=== PATIENT | male | born 1970 | race Caucasian/White ===

== ENCOUNTER 2021-12-18 00:46 | Emergency (ER) | payer SELFPAY ==
[~2021-12-18] VITALS: Ht 165.1 cm; Wt 61.2 kg
[2021-12-18 01:03] VITALS: BP_SYST 123
--- NOTE | 2021-12-18 01:03 | NUR ---
Patient came in to the emergency department accompanied by family complains of headache, body aches and reports shortness of breath started today. Patient claims taking Advil for his pain. Patient with history of asthma but reports he has no asthma attack for 4 years. Patient claims he tested negative for covid 19 this morning. Patient breathing easy, respirations even and unlabored, lungs clear to auscultate. Patient afebrile, O2 sat 98% on RA, denies N/V/D. Patient AAO x 4, ambulatory with steady gait.
--- NOTE | 2021-12-18 01:04 | NUR ---
YULI Riley in tent examining patient.
--- NOTE | 2021-12-18 01:45 | NUR ---
Patient given written and verbal discharge instructions and verbalizes understanding. ER MD discussed with patient the results and treatment provided. Patient in stable condition. ID arm band removed. IV catheter removed intact and dressing applied, no active bleeding. Rx of N/A given. Patient educated on pain management and to follow up with PMD. Pain Scale . Opportunity for questions provided and answered. Medication side effect fact sheet provided.
== END 2021-12-18 01:44 | disposition home or self-care (01) ==
LOC: SED 00:46
DX: B34.9 Viral infection, unspecified (principal); J45.909 Unspecified asthma, uncomplicated; R05.9 Cough, unspecified; R51.9 Headache, unspecified; Z79.899 Other long term (current) drug therapy; Z20.822 Contact with and (suspected) exposure to COVID-19
CPT/HCPCS: 36415; 71045; 99284

== ENCOUNTER 2022-10-15 09:47 | Emergency (ER) | payer MEDICAID ==
[~2022-10-15] VITALS: Ht 165.1 cm; Wt 65.8 kg
[2022-10-15 10:04] VITALS: BP_SYST 142
[2022-10-15] MEDS ORDERED: ALBMDI INH (11:16)
[2022-10-15] MEDS ORDERED: PRED20TA PO (11:16)
[2022-10-15 11:24] VITALS: BP_SYST 142
== END 2022-10-15 11:23 | disposition home or self-care (01) ==
LOC: SED 09:47
DX: J40 Bronchitis, not specified as acute or chronic (principal); Z20.822 Contact with and (suspected) exposure to COVID-19
CPT/HCPCS: 36415; 71045; 99284